=== PATIENT | male | born 1970 | race Caucasian/White ===

== ENCOUNTER 2018-11-24 18:01 | Emergency (ER) | payer OTHER ==
[~2018-11-24] VITALS: Ht 172.7 cm; Wt 81.7 kg
[~2018-11-24 18:01] MED LIST: AMBIEN 10 MG TA10 MG PO; ANALGESIC CREME86 GM TP; ASPERCREME 1141.7 GM; ATIVAN1 MG PO; BUTALB-CAFF-AC1 EACH; CAPACET CAPSUL1 EACH PO; CELEXA40 MG PO; COLACE100 MG PO; CONSTULOSE10 GM/152 PO; FIORICET 50-321 EACH PO; FLOMAX; FLOMAX PO; GABAPENTIN100 MG PO; HYDROXYZINE HCL25 M1 PO; LACTULOSE10 GM/15 M PO; LEXAPRO 10 MG T10 M1 PO; LEXAPRO 10 MG T10 MG PO; LIDODERM 5%1 PATCH TOP; MEDROLDOSEPACK PO; METHADONE HCL5 MG PO; MI ACID LIQUID355 ML PO; MULTIVITAMINS PO; NEURONTIN 300300 M1 PO; NORTRIPTYLINE H25 M3 PO; ONDANSETRON HCL4 M3 PO; OXYCODONE HCL10 M1 PO; OXYCODONE HCL5 M1 PO; OXYCONTIN15 MG PO; PERCOCET 5-3251 EACH PO; PRILOSEC 10MG C10 M1 PO; PRILOSEC 20 MG20 MG PO; ROBITUSSIN15 MG/5 M1; ROXICODONE15 M1 PO; ROXICODONE30 M1; SMOOTHLAX238 GM PO; TAMSULOSIN HCL0.4 MG PO; TIZANIDINE HCL4 M1 PO; TIZANIDINE HCL4 MG PO; TIZANIDINE4 MG/1 TA1 PO; TOPAMAX50 MG PO; TRAMADOL 50 MG50 MG PO; ULTRAM 50MG TAB50 MG PO; VALIUM2 MG PO; VALIUM5 MG PO; VITAMIN D-32000 UNIT PO; VITAMIN D1000 UNI1 PO; VITAMIN D31000 UNI2 PO; VOLTAREN GEL 1100 G1 TOP
[2018-11-24 19:38] LABS: AMP/METHAMP Negative (Negative); BARBITURATES Negative (Negative); BENZODIAZEPINES Negative (Negative); COCAINE Negative (Negative); METHADONE Negative (Negative); OPIATES Negative (Negative); PCP Negative (Negative)
[2018-11-24 19:53] LABS: HEMATOCRIT 44.3 % (42.0-52.0); HEMOGLOBIN 15.4 gm/dL (14.0-18.0); MCH 34.6 pg (26.0-34.0); MCHC 34.8 g/dL (28.0-37.0); MCV 99.5 fL (80.0-100.0); RBC 4.45 mil/uL (4.50-6.00); RDW 13.8 % (10.5-14.5); WBC 7.4 thou/uL (4.0-11.0)
[2018-11-24 20:12] LABS: CALCIUM 8.8 mg/dL (8.5-10.1); CREATININE 0.8 mg/dL (0.7-1.3); MAGNESIUM 2.1 mg/dL (1.8-2.4); POTASSIUM 3.9 mmol/L (3.5-5.1)
[2018-11-25 06:36] VITALS: BP 97/54
== END 2018-11-25 06:40 | disposition home or self-care (01) ==
LOC: ER 18:01
PROVIDERS: Physician Assistant
DX: F10.129 Alcohol abuse with intoxication, unspecified (principal); F17.210 Nicotine dependence, cigarettes, uncomplicated; Z88.6 Allergy status to analgesic agent; Z88.1 Allergy status to other antibiotic agents; Z88.8 Allergy status to other drugs, medicaments and biological substances; Y90.0 Blood alcohol level of less than 20 mg/100 ml